=== PATIENT | male | born 1940 | race Caucasian/White ===

== ENCOUNTER → 2024-02-13 09:38 | Outpatient (REF) | payer BC, SELFPAY ==
[2024-02-13 12:50] LABS: % Basophils 0.6 % (0-2); % Eosinophils 2.6 % (0-6); % Immature Granulocytes 0.1 % (0-0.5); % Lymphocytes 13.7 % (20.5-51.1); % Monocytes 6.3 % (1.7-9.3); % Neutrophils 76.7 % (42.2-75.2); Absolute Eosinophils 0.2 10^3/uL (0-0.7); Absolute Lymphocytes 0.9 10^3/uL (1.2-3.4); Absolute Monocytes 0.4 10^3/uL (0.1-0.6); Absolute Neutrophils 5.2 10^3/uL (1.4-6.5); Hematocrit 45.1 % (39.0-52.0); Hemoglobin 15.2 g/dL (13.0-18.0); Mean Corp Hgb Conc. 33.7 g/dL (33.0-37.0); Mean Corpuscular Hgb 30.8 pg (27.0-31.0); Mean Corpuscular Volume 91.5 fL (80.0-94.0); Mean Platelet Volume 11.4 fL (7.4-10.4); Nucleated Red Blood Cells % 0 % (-); Platelet Count 157 10^3/uL (130-400); Red Blood Cell Count 4.93 10^6/uL (4.70-6.10); Red Cell Dist. Width 13.1 % (11.5-14.5); White Blood Cell Count 6.8 10^3/uL (4.8-10.8)
[2024-02-13 13:04] LABS: Blood Urea Nitrogen 23 mg/dl (9-20); Calcium 10.3 mg/dl (8.4-10.2); Carbon Dioxide 25 mmol/L (22-30); Chloride 107 mmol/L (98-107); Glucose 117 mg/dl (70-99); Sodium 141 mmol/L (135-145); eGFR > 60.00
[2024-02-13 13:09] LABS: Potassium 4.4 mmol/L (3.5-5.1)
== END ==
LOC: HWCARD 09:38
PROVIDERS: ATTENDING PHYSICIAN Specialist; FAMILY PHYSICIAN Family Medicine
DX: Z01.818 Encounter for other preprocedural examination (principal)
CPT/HCPCS: 36415; 80048; 85025; 93005

== ENCOUNTER 2025-06-21 20:52 | Emergency (ER) | payer BC, SELFPAY ==
[2025-06-21 20:53] VITALS: BP 142/70
[2025-06-21 21:22] LABS: Hematocrit 44.2 % (39.0-52.0); Hemoglobin 14.8 g/dL (13.0-18.0); Mean Corp Hgb Conc. 33.5 g/dL (33.0-37.0); Mean Corpuscular Volume 95.7 fL (80.0-94.0); Nucleated Red Blood Cells % 0 % (-); Platelet Count 150 10^3/uL (130-400); Red Cell Dist. Width 12.5 % (11.5-14.5)
[2025-06-21 21:40] LABS: ALT (SGPT) 22 U/L (0-50); AST (SGOT) 26 U/L (17-59); Albumin 4.6 g/dl (3.5-5.0); Alkaline Phosphatase 70 U/L (38-126); Blood Urea Nitrogen 26 mg/dl (9-20); Calcium 9.9 mg/dl (8.4-10.2); Carbon Dioxide 26 mmol/L (22-30); Chloride 101 mmol/L (98-107); Glucose 135 mg/dl (70-99); Lipase 64 U/L (23-300); Potassium 4.1 mmol/L (3.5-5.1); Sodium 133 mmol/L (135-145); Total Protein 7.3 g/dl (6.3-8.2); eGFR > 60.00
--- NOTE | 2025-06-21 22:43 | ED.GENMED ---
History of Present Illness
General
Chief Complaint: Abdominal Pain
Source: patient and spouse
Time Seen by Provider: 06/21/25 22:30
History of Present Illness
History of Present Illness:
84-year-old male, otherwise healthy, presents to the emergency department for evaluation after he had some tomato soup and grilled cheese for lunch and approximately 1 hour afterwards started develop some generalized abdominal cramping/discomfort
accompanied with 1 episode of nonbloody nonbilious emesis and some episodes of retching prompting him to come to the ER. Patient and spouse initially went to urgent care but due to the urgent care closing were recommended to come to the ER
instead. At time of my exam patient states he is otherwise asymptomatic and feels well. Patient recently got back to the night states with his after traveling to [place]. No other known sick contacts or recent antibiotics. Patient states
other than prostatectomy he has not had any other abdominal surgeries.
Past History
Past History
ED Past Medical History: None
ED Past Surgical History: Orthopedic and Urological
Social History
Tobacco: Non-smoker
Alcohol: Occasional
Drug: None
Personal:
Living: with family
Review of Systems
Review of Systems
All Other Systems: ROS reviewed and negative except as documented in HPI and ROS
Phy Exam
Physical Exam
Physical Exam:
GENERAL: Alert , in no apparent distress
EYE: clear conjunctiva b/l
HEAD: NCAT
ENT: mmm.
CARDIAC: Regular rate and rhythm .
LUNGS: Clear breath sounds bilaterally, no acute respiratory distress, no wheezes/rales/rhonchi
ABDOMEN: Soft, without focal tenderness, no r/g, no cvat
NEUROLOGICAL: Alert and oriented
SKIN: Warm and dry, skin intact.
MUSCULOSKELETAL: No edema, well perfused.
PSYCH: Normal and appropriate interaction.
Scores
Heart Failure Risk
Heart Failure Risk Score: Not Applicable
Heart Score for Chest Pain Patients
STEMI patient?: Not applicable
Withdrawal Assessment of Alcohol
Withdrawal Assessment Completed?: Not applicable
Course
Orders/Labs/Results
Orders:
Orders
06/21/25 21:06
Complete Blood Count/With Diff Urgent
Comprehensive Metabolic Panel Urgent
Lipase Urgent
06/21/25 22:16
EKG [Electrocardiogram (*1)] Urgent
Reason for Study: Abdominal Pain
EKG- Treatment ONCE
06/21/25 22:39
CT Abd/pelvis W Iv Cont Urgent
Comment:
Reason For Exam: generalized abd cramping, 1 episode vomiting
0.9% Sodium Chloride 500 ml [Nss] 500 ml IV BOLUS
Abnormal Lab Results
06/21/25
21:06
RBC 4.62 L 10^6/uL
(4.70-6.10)
MCV 95.7 H fL
(80.0-94.0)
MCH 32.0 H pg
(27.0-31.0)
MPV 11.3 H fL
(7.4-10.4)
Absolute Neuts (auto) 9.2 H 10^3/uL
(1.4-6.5)
Absolute Lymphs (auto) 0.5 L 10^3/uL
(1.2-3.4)
Neutrophils % 89.5 H %
(42.2-75.2)
Lymphocytes % 4.9 L %
(20.5-51.1)
Sodium 133 L mmol/L
(135-145)
BUN 26 H mg/dl
(9-20)
Glucose 135 H mg/dl
(70-99)
06/21/25 21:06
06/21/25 21:06
Vital Signs
Initial and Last Documented VS:
Initial Vital Signs
Temp Pulse Resp BP Pulse Ox
97.8 F 53 16 142/70 96
06/21/25 20:53 06/21/25 20:53 06/21/25 20:53 06/21/25 20:53 06/21/25 20:53
Last Documented Vital Signs
Temp Pulse Resp BP Pulse Ox
97.8 F 62 21 147/90 97
06/21/25 20:53 06/21/25 23:15 06/21/25 23:15 06/22/25 01:44 06/21/25 23:15
MDM/Problems Addressed
Differential Diagnosis Includes:
GERD
Gastritis
Food-borne illness
PUD
Cholecystitis/Cholelithiasis
Appendicitis
Atypical ACS
MDM/Problems Addressed:
84-year-old male presenting to the ER for evaluation of abdominal discomfort that began shortly after eating some tomato soup and grilled cheese. By time of my exam patient states he feels otherwise well. Labs initiated on arrival are reassuring.
Slight prerenal azotemia. Given patient's age will check CT scan of the abdomen and pelvis but his exam is otherwise reassuring. Disposition pending CT scan results
*Radiology
Radiology exam reviewed: radiology read reviewed
*Pulse Oximetry
SaO2: 96
Oxygen Mode of Delivery: Room air
Patient hypoxic: no
*Critical Care Note
Total Time (30-74mins, 75-104mins- exclusive of procedures): Not Applicable
Patient Management
Escalation/DeEscalation of care consider admission/obs:
CT scan shows a 2 mm stone at the right UVJ. Patient remains pain-free and without any nausea. Feels comfortable being discharged home. Prescription for Flomax and Zofran sent to pharmacy. Information for urology provided. Patient and both
aware of return precautions. Stable for discharge home.
ED Attending Note
-
Portions of this chart may have been created with voice recognition software.� Occasional wrong word or��sound alike� substitutions may have occurred due to the inherent limitations of voice recognition software.
Discharge Plan
Departure
Patient Disposition: Home (Routine Discharge)
Date of Disposition: 06/22/25
Time of Disposition: 01:02
Patient with high blood pressure during this ER visit?: Yes
Discharge Problem:
Kidney stone on right side
Instructions: Kidney Stones (DC)
Prescriptions:
New
tamsulosin 0.4 mg capsule
0.4 mg PO DAILY Qty: 10 0RF
ondansetron 4 mg tablet,disintegrating
4 mg PO TIDPRN PRN (Reason: nausea/vomiting) Qty: 10 0RF
No Action
Alphalipoic Acid
250 mg PO DAILY
Co Q 10
500 mg PO DAILY
Flax Oil
DAILY
Multivitamin
DAILY
Vitamin C
500 mg PO DAILY
Vitamin D
1,000 mg PO DAILY
Vitamin K
DAILY
Referrals:
Carroll Thompson MD [Family Provider, Gastroenterology]
Jose Alfredo Guillory MD [Active, Urology]
Interventions
Interventions:
*Risk Screen - Suicide Last Done: 06/21/25 20:53
*General Assessment Last Done: 06/22/25 01:44
*Neglect/Abuse Screening Last Done: 06/22/25 01:44
*ED- Fall Risk Assessment Last Done: 06/22/25 01:44
*ED COVID-19 Vaccine History Last Done: 06/22/25 01:44
*ED Influenza Vaccine History Last Done: 06/22/25 01:44
*Nursing Disposition Last Done: 06/22/25 01:44
IC-Jcltvq-Mjmxhslbpe Assessment Last Done: 06/21/25 23:03
Discharge Date and Time
Discharge Date/Time: 06/22/25 01:45
Print Language: [id number]
[2025-06-21 22:47] VITALS: BP 146/87
[2025-06-21] MEDS: NSS 500 IV (22:52)
[2025-06-21 23:00] VITALS: BP 147/109
[2025-06-22 01:44] VITALS: BP 147/90
== END 2025-06-22 01:45 | disposition home or self-care (01) ==
LOC: EMR 20:52
PROVIDERS: Emergency Medicine; EMERGENCY PHYSICIAN Student in an Organized Health Care Education/Training Program; FAMILY PHYSICIAN Internal Medicine Gastroenterology
DX: N13.2 Hydronephrosis with renal and ureteral calculous obstruction (principal)
CPT/HCPCS: 99284; 74177; 80053; 83690; 85025; 93005; Q9967